=== PATIENT | female | born 2000 ===

== ENCOUNTER 2023-05-30 15:57 | Outpatient (CLI) | payer OTHER, SELFPAY ==
--- NOTE | ~2023-05-30 | US_ITS ---
US breast RT limited 05/30/2023 16:41 Indication: Palpable right breast lump. Ductal mastitis. Procedure: High-resolution Limited ultrasound of the right breast Comparison: No prior studies for comparison. Findings: At 10:00, 1 cm from the nipple there is a septated cyst measuring 5 mm. No suspicious tye s to suggest malignancy. Impression: 1: Benign septated cyst of the right breast at 10:00, 1 cm from the nipple in the area of palpable co ncern. No sonographic evidence for malignancy. BI-RADS CATEGORY 2 - BENIGN FINDINGS Reviewed, dictated and finalized at location A. Impression: 1: Benign septated cyst of the right breast at 10:00, 1 cm from the nipple in t he area of palpable concern. No sonographic evidence for malignancy. BI-RADS CATEGORY 2 - BENIGN FINDINGS
== END 2023-05-30 15:58 | disposition home or self-care (01) ==
LOC: ANHIMG 15:59
PROVIDERS: Visit Provider Family Medicine
DX: N60.49 Mammary duct ectasia of unspecified breast (principal)
CPT/HCPCS: 76642